=== PATIENT | female | born 1995 ===

== ENCOUNTER 2018-04-01 21:37 | Emergency (ER) | payer BC ==
[2018-04-01 21:48] VITALS: RESP 16; O2SAT 99
[2018-04-01] MEDS ORDERED: Lactated Ringer's 1,000 ML IV SCH ×2 (22:15→23:30)
--- NOTE | 2018-04-01 22:31 | ED PDOC ---
HPI: Abdomen Time Seen by Provider: 04/01/18 21:54 Chief Complaint (Nursing): Abdominal Pain Chief Complaint (Provider): abdominal pain History Per: Patient History/Exam Limitations: no limitations Onset/Duration Of Symptoms: Days (x5) Current Symptoms Are (Timing): Still Present Location Of Pain/Discomfort: Suprapubic Quality Of Discomfort: Cramping Associated Symptoms: Nausea, Vomiting (non bloody) Additional Complaint(s): Lesia Bartlett is a 22 year of female, with no significant past medical history, who presents to the emergency department complaining of a crampy suprapubic pain associated with multiple episodes of non-bloody vomiting and persistent nausea onset for x5 days. Patient is currently 9 weeks and 6 days . She is A1 and her LMP was sometime in January, patient is uncertain of date. Patient was seen by her OBGYN x2 weeks ago and was told she was x8 weeks pr egnant with an IUP. She was not informed of her bloodwork results yet but was told that her is progressing normally based on ultrasound. She denies any fever, chills, diarrhea, vaginal bleeding, rectal bleeding, hematemesis or previous abdominal surgeries. PMD: None provided. Last Menstral Period: Sometime in January, uncertain of date. Past Medical History Reviewed: Historical Data, Nursing Documentation, Vital Signs Vital Signs: Last Vital Signs Temp 98.9 F 04/01/18 21:46 Pulse 90 04/01/18 21:46 Resp 16 04/01/18 21:46 BP 136/87 04/01/18 21:46 Pulse Ox 99 04/01/18 21:46 - Medical History PMH: No Chronic Diseases - Surgical History Surgical History: No Surg Hx - Family History Family History: States: Unknown Family Hx - Social History Current smoker - smoking cessation education provided: No Alcohol: None Drugs: Denies - Home Medications Home Medications: Ambulatory Orders Medication Instructions Recorded Doxylamine/Pyridoxine HCl (B6) 1 - 2 tab PO HS PRN #10 tablet. 04/02/18 [Sobeida Remy 10-10 mg Tablet] - Allergies Allergies/Adverse Reactions: Allergies Allergy/AdvReac Type Severity Reaction Status Date / Time No Known Allergies Allergy Verified 04/01/18 21:46 Review of Systems ROS Statement: Except As Marked, All Systems Reviewed And Found Negative Constitutional: Negative for: Fever, Chills Gastrointestinal: Positive for: Nausea, Vomiting, Abdominal Pain (suprapubic). Negative for: Diarrhea, Hematochezia, Hematemesis Genitourinary Female: Negative for: Vaginal Bleeding Physical Exam - Reviewed Nursing Documentation Reviewed: Yes Vital Signs Reviewed: Yes - Physical Exam Appears: Positive for: No Acute Distress Head Exam: Positive for: ATRAUMATIC, NORMAL INSPECTION, NORMOCEPHALIC Skin: Positive for: Normal Color, Warm, Dry Eye Exam: Positive for: Normal appearance, EOMI, PERRL ENT: Positive for: Normal ENT Inspection (moist mucous membranes) Neck: Positive for: Normal, Painless ROM, Supple Cardiovascular/Chest: Positive for: Regular Rate, Rhythm. Negative for: Murmur Respiratory: Negative for: Respiratory Distress Gastrointestinal/Abdominal: Positive for: Normal Exam, Soft. Negative for: Tenderness (no suprapubic tenderness), Guarding, Rebound Back: Positive for: Normal Inspection. Negative for: L CVA Tenderness, R CVA Tenderness Extremity: Positive for: Normal ROM (upper and lower extremities). Negative for: Tenderness, Deformity, Swelling Neurologic/Psych: Positive for: Alert, Oriented - Laboratory Results Result Diagrams: 04/01/18 22:42 04/01/18 22:42 - ECG O2 Sat by Pulse Oximetry: 99 (RA) Pulse Ox Interpretation: Normal Medical Decision Making Medical Decision Making: Time: 21:54 Initial Impression: Abdominal pain, nausea and vomiting in Initial Plan: --Beta-HCG, quantitative --CMP --Urine --CBC w/ differential --Lactated Ringers 1,000 ml IV 1,000 mls/hr --Reglan 10 mg IVPB --Zofran Inj 4 mg IVP --Urinalysis --OB , Limited [US] --Reevaluation 23:55 US Obstetrical FINDINGS: A gestational sac is seen. The yolk sac is seen. The pole is seen. [place] rump length measures 2. 7 cm compatible with 9.4 weeks estimated ultrasound age. heart motion observed at 150 beats per minute. The right ovary measures 2.0 x 1.5 x 2.6 cm and demonstrates normal Doppler flow. The left ovary measures 2.0 x 1.3 x 1.7 cm and demonstrates normal Doppler flow. UTERUS: Uterus measures 9.4 x 5.7 to 7.4 centimeters and is anteverted. CERVIX: The cervix measures 3.3 centimeters and appears closed. OVARIES: Unremarkable. No mass. FREE FLUID: No free fluid. IMPRESSION: 1. Single live intrauterine gestation of approximately 9.2 weeks. heart motion observed as described. 00:03 At this time patient reports complete resolution of nausea. UA shows ketones at 80, additional bolus ordered. Scribe Attestation: Documented by Theodore Doll, acting as a scribe for Omari Scherer PA-C Provider Scribe Attestation: All medical record entries made by the Scribe were at my direction and personally dictated by me. I have reviewed the chart and agree that the record accurately reflects my personal performance of the history, physical exam, medical decision making, and the department course for this patient. I have also personally directed, reviewed, and agree with the discharge instructions and disposition. Disposition - Clinical Impression Clinical Impression: Hyperemesis - Patient ED Disposition Is Patient to be Admitted: No - Disposition Referrals: [facility] [Outside] Disposition: Routine/Home Disposition Time: 00:03 Condition: IMPROVED Additional Instructions: FOLLOW UP WITH YOUR OBGYN FOR FURTHER EVALUATION RETURN TO ED IMMEDIATELY IF SYMPTOMS WORSEN LESIA BARTLETT, thank you for letting us take care of you today. Your provider was Eyal Skelton MD and you were treated for 10 WEEKS PREG ABD PAIN. The emergency medical care you received today was directed at your acute symptoms. If you were prescribed any medication, please fill it and take as directed. It may take several days for your symptoms to resolve. Return to the Emergency Department if your symptoms worsen, do not improve, or if you have any other p roblems. Please contact your doctor or call one of the physicians/clinics you have been referred to that are listed on the Patient Visit Information form that is included in your discharge packet. Bring any paperwork you were given at discharge with you along with any medications you are taking to your follow up visit. Our treatment cannot replace ongoing medical care by a primary care provider outside of the emergency department. Thank you for allowing the [facility] team to be part of your care today. If you had an X-Ray or CT scan: A Radiologist will review the ED reading if any change in treatment is needed we will contact you. If you had a blood, urine, or wound culture: It will take several days for the results, if any change in treatment is needed we will contact you. If you had an STI test: It will take 48 hours for the results. Please call after 1 week if you have not heard back. Prescriptions: Doxylamine/Pyridoxine HCl (B6) [Sobeida Remy 10-10 mg Tablet] 1 - 2 tab PO HS PRN #10 tablet. PRN Reason: Nausea/Vomiting Instructions: Nausea and Vomiting of (DC) Forms: [employer] ([place]i)
[2018-04-01 22:45] LABS: BASO # 0.1 K/uL (0.0-0.2); BASO % 0.8 % (0.0-2.0); EOS % 0.2 % (0.0-4.0); HEMOGLOBIN 12.5 g/dL (12.0-16.0); LYMPH # 2.1 K/uL (1.0-4.3); LYMPH % 19.1 % (20.0-40.0); MEAN CELL VOLUME 91.5 fl (81.0-99.0); MEAN CORPUSCULAR HEMOGLOBIN 31.3 pg (27.0-31.0); MEAN CORPUSCULAR HGB CONC 34.2 g/dL (33.0-37.0); MEAN PLATELET VOLUME 9.2 fl (7.2-11.7); MONO # 0.5 K/uL (0.0-0.8); NEUT # 8.2 K/uL (1.8-7.0); NEUT % 74.9 % (50.0-75.0); RBC 3.98 Mil/uL (3.80-5.20); RED CELL DISTRIBUTION WIDTH 12.5 % (11.5-14.5); WHITE BLOOD COUNT 10.9 K/uL (4.8-10.8)
[2018-04-01 22:57] LABS: ALB/GLOB RATIO 1.3 (1.0-2.1); ALBUMIN 4.3 g/dL (3.5-5.0); BLOOD UREA NITROGEN 6 mg/dl (7-17); CALCIUM 9.2 mg/dL (8.4-10.2); GFR NON-AFRICAN AMERICAN > 60
[2018-04-01 23:02] LABS: ALT/SGPT 20 U/L (9-52); AST/SGOT 26 U/L (14-36)
[2018-04-01 23:26] LABS: SQUAMOUS EPITHIAL < 1 /hpf (0-5); URINE BACTERIA RARE (<OCC); URINE BILIRUBIN NEGATIVE (NEGATIVE); URINE BLOOD NEGATIVE (NEGATIVE); URINE CLARITY CLEAR (Clear); URINE COLOR STRAW (YELLOW); URINE GLUCOSE (UA) NEG (NEGATIVE); URINE LEUKOCYTE ESTERASE NEG Leu/uL (Negative); URINE PROTEIN NEGATIVE (NEGATIVE); URINE UROBILINOGEN 0.2-1.0 mg/dL (0.2-1.0)
[2018-04-02 01:26] VITALS: BP 130/84; PULSE 86; TEMP 98.6
--- NOTE | 2018-04-02 11:22 | US ---
Date of service: 04/01/2018 PROCEDURE: First trimester ultrasound HISTORY: Suprapubic pain COMPARISON: None TECHNIQUE: Standard protocol for this study/examination. FINDINGS: LMP: Unknown Prior examinations from the current : None. TECHNIQUE: Real-time 2D imaging, duplex and color Doppler. FINDINGS: Cardiac activity: Present Rate: 150 BPM Measurements: [place] rump length: 2.70 cm Gestational age based on CRL 9 weeks 4 days Gestational age 8 weeks 6 days based on gestational sac measurement 3.72 cm Gestational age derived from LMP: Cannot be ascertained based in the absence of a reliable/ known LMP OMI based on LMP: Cannot be ascertained based in the absence of a reliable/ known LMP OMI based on biometry: 11/02/2018 Gestational concordance cannot be determined. Yolk sac identified Cervix: No Cervical abnormalities: Negative examination for cervical dilatation or effacement. Closed cervix measuring 3.30 cm Subchorionic hemorrhage: None UTERUS: 5.7 x 7.4 x 9.4 cm. ADNEXA: Right: 1.5 x 2.0 x 2.6 cm. Normal Doppler arterial waveform documented. Left: 1.3 x 1.7 x 2.0 cm. Normal Doppler arterial waveform documented Fluid in the cul-de-sac: None. IMPRESSION: Nine weeks 2 days live intrauterine gestation. Concordant findings (preliminary report) provided by [employer] [facility].
== END 2018-04-02 01:05 | disposition home or self-care (01) ==
LOC: H.ER 21:37
DX: O21.9 Vomiting of pregnancy, unspecified (principal)
CPT/HCPCS: 76815; 80053; 81003; 81025; 84702; 85025; 96374; 99284; J2405; J7120

== ENCOUNTER 2018-07-11 03:44 | Emergency (ER) | payer BC, MEDICAID ==
[2018-07-11 05:11] VITALS: BMI 24.1
--- NOTE | 2018-07-15 13:42 | OBHP ---
Datetime: 07/11/2018 05:00 IP Adm Impression: , intrauterine IP Admit Plan: Observation/Evaluation; Discharge home Admit Comment, IP Provider: 23 y/o female at 23.5 wks GA presents to [facility] w/ c/o left sided back pain, and painful contractions that began at 2:30 AM after patient fell from the bed while sleep ing. She denies vaginal bleeding and endorses movement. Denies hx of domestic violence. care: [facility] OBhx: 1 NVD in 2011, 1 miscarriage Pmhx: denies HomeRx: vitamins Allergies: NKDA SurgHx: denies SocialHx: denies toxic habits. Lives at home w/ daughter. Famhx: denies ROS: all systems reviewed and negative except per HPI Physical Exam: Gen: no acute distress, lying in bed comfortably Heart: S1 S2 present, RRR Lungs: normal breathing pattern, clear to auscultation bilaterally Abd: no signs of trauama, gravid, normal bowel sounds, soft, non-tender Back: no signs of trauma Extremities: no erythema/swelling/tenderness Psych: Good eye contact, appropriate mood. Cooperative Assessment and Plan 23 y/o female IUP at 23.5 wks GA s/p fall [place] shows no contractions FHR 130-140 Tylenol 650mg PO x1 Patient is stable for discharge to home w/ instructions to follow up w/ OB. Given script for Tylen ol 650mg PO Q6H prn. ER precautions given: come back if vaginal bleed, abd pain persists/worsens. Case discussed w/ Dr. Susan Maynard, pgyi Attending Note: Patient was seen and evaluated and I agree with the above. Pelvic Type - PN: Not Done Extremities - PN: Normal Abdomen - PN: Normal Back - PN: Normal Breast - PN: Not Done Lungs - PN: Normal Heart - PN: Normal Thyroid - PN: Normal Neurologic - PN: Not Done HEENT - PN: Not Done General - PN: Normal Contraction Comments Provider: none Gestation - Est Wks by US: 23.5 EGA AdmitDate IP: 23.5 Vital Signs Provider: Reviewed; Within Normal Limits IP Chief Complaint: Trauma/Fall Genitourinary Exam: Not Done DTRs - PN: Not Done
[2018-07-15 17:40] VITALS: BP 106/72; PULSE 88
== END 2018-07-11 04:45 | disposition home or self-care (01) ==
LOC: H.EROB2 03:44
DX: O26.91 Pregnancy related conditions, unspecified, first trimester (principal); M54.9 Dorsalgia, unspecified; Z3A.23 23 weeks gestation of pregnancy; Z04.3 Encounter for examination and observation following other accident